=== PATIENT | male | born 1935 | race Caucasian/White ===

== ENCOUNTER 2019-05-06 03:52 | Emergency (ER) | payer MEDICARE, OTHER, SELFPAY ==
--- NOTE | 2019-05-06 03:58 | ED_ITS ---
Entered by Amaris Yepez, acting as scribe for Mariola Marcos Documented by User: Mariola Marcos 05/06/19 05:17 HPI - Abdominal Pain General: Chief Complaint: Abdominal Pain Stated Complaint: ABD PAIN Time Seen by Provider: 05/06/19 03:53 Source: patient Mode of arrival: ambulatory Limitations: no limitations History of Present Illness: HPI narrative: 83 yo m came to the er pov for abd pain and left flank pain. Onset was last night. Pt states that he is having some pain in the left flank towards the back. Pt said that he has a history of kidney stones and this feels the same. Pt is nauseated a little, does not have a fever or vomited. He denies any blood in his urine or dysuria or urinary frequency/urgency. He is unaware of anything that makes his symptoms better or worse. MD elicited complaint: abdominal pain Pertinent past history: kidney stones Onset (ago): day(s) (a few days ago) Pain Consistency: intermittent Location: L flank Severity: mild Quality: sharp Migration to: L flank Exacerbating factors: nothing Relieving factors: nothing Associated Symptoms: Reports nausea; Denies chills, dysuria and fever(s) Related Data: Patient : No Review of Systems General: Reports: other (negative unless marked) Const: Denies: fever or chills Eyes: Denies: change in vision ENMT: Denies: throat pain Card: Denies: chest pain or palpitations Resp: Denies: shortness of breath GI: Reports: abdominal pain and nausea : Denies: flank pain or painful urination Musc: Denies: neck pain, back pain or extremity pain Skin/Breast: Denies: rash, skin tenderness or yellow skin Neuro: Denies: headache or numbness in extremities Endo: Denies: excessive thirst Sunday/Lymph: Denies: easy bruising PFSH ED PFSH: Medical History Coronary artery disease Hypertension Kidney stones Social History Smoking and tobacco status: never smoked Physical Exam Const: COMMON NORMALS: no apparent distress, oriented x3, no limitations, healthy appearing and well nourished EXAM LIMITATIONS: no altered mental status GENERAL APPEARANCE: cooperative, well kempt and well developed ORIENTATION/CONSCIOUSNESS: Yes awake HENMT: COMMON NORMALS: normocephalic, head/scalp atraumatic, hearing grossly normal bilaterally, external ears normal, EAC's normal, external nose normal and moist oral mucous membranes HEAD & SCALP: normal to inspection, normocephalic and atraumatic FACE & SINUS: normal facial exam and face symmetric NOSE: external nose normal and nares normal EXTERNAL EAR: Yes external ears normal EXTERNAL AUDITORY CANAL: EAC's normal MOUTH: oral and palatal mucosa normal and tongue normal Eye: COMMON NORMALS: PERRL, EOMs intact bilaterally, conjunctivae normal and no scleral icterus GENERAL EYE: normal appearance of both eyes and normal light reflex CONJUNCTIVA: Yes conjunctivae normal SCLERA: sclerae normal CORNEA: Yes corneas normal PUPIL: Yes PERRL DIRECT OPHTHALMOSCOPY: Yes normal light reflex Neck/C-Spine: COMMON NORMALS: full ROM, no lymphadenopathy, supple, no meningeal signs and no JVD GENERAL: Yes normal visual inspection and Yes trachea midline CERVICAL SPINE: Yes cervical ROM normal Chest: COMMONS NORMALS: inspection of chest normal and palpation of chest normal Resp: COMMON NORMALS: normal respiratory effort, no retractions, no use of accessory muscles and clear to auscultation bilaterally EFFORT & INSPECTION: Yes able to speak in complete sentences AUSCULTATION: clear to auscultation bilaterally Cardio: COMMON NORMALS: no JVD, regular rate, regular rhythm, S1 normal heart sound, S2 normal heart sound, no gallops, no clicks, no murmurs and no rub JUGULAR VENOUS DISTENTION: no JVD RATE: regular rate RHYTHM: regular rhythm HEART SOUNDS: S1 normal and S2 normal GI: COMMON NORMALS: soft to palpation, non-tender, no hepatosplenomegaly and no masses INSPECTION: Yes normal to inspection PALPATION: Yes soft and Yes no hepatosplenomegaly : COMMON NORMALS: Yes no CVA tenderness BLADDER/KIDNEY EXAM: Yes no CVA tenderness Back/Pelvis: COMMON NORMALS: no CVA tenderness, thoracic and lumbar spine normal to inspection, no thoracic nor lumbar tenderness and thoraco-lumbar ROM normal Extremity: COMMON NORMALS: normal to inspection, full ROM, normal capillary refill, no joint enlargement, no clubbing, cyanosis or edema and no calf tenderness Neuro: COMMON NORMALS: oriented x3, CN's II-XII intact bilaterally, moves all extremities, no focal motor deficits and no sensory deficits noted MENINGEAL SIGNS: Yes no meningeal signs Psych: COMMON NORMALS: mental status grossly normal, thought process normal, cooperative, affect normal, speech normal and activity/motor behavior normal APPEARANCE: Yes well kempt SPEECH: Yes normal speech THOUGHT PROCESS: normal thought process Skin: COMMON NORMALS: no rashes or lesions noted, skin turgor normal, no jaundice, no petechiae and no mottling GENERAL SKIN EXAM: no rashes or lesions noted and turgor normal Course Vital Signs: Vital signs: Vital Signs Temperature 97.7 F 05/06/19 04:00 Pulse Rate 78 05/06/19 04:00 Respiratory Rate 18 05/06/19 04:00 Blood Pressure 149/71 05/06/19 04:00 Pulse Oximetry 97 05/06/19 04:00 MDM - Abdominal Pain Lab Data: Labs: Lab Results 05/06/19 05/06/19 05/06/19 Range/Units 04:50 05:00 05:23 WBC 12.7 H (4.0-10.0) 10^3/ uL RBC 4.21 (4.1-5.3) 10^6/u L Hgb 13.5 (11.7-16.6) g/dL Hct 40.5 L (42.0-52.0) % MCV 96.2 H (80-94) fL MCH 32.1 (28.0-34.0) pg MCHC 33.3 (30.0-36.0) g/dL RDW 13.3 (12.1-15.1) % Plt Count 180 (130-400) 10^3/c mm MPV 10.1 (7.4-10.4) fL Neut % (Auto) 67.4 % Lymph % (Auto) 23.0 % Bertie % (Auto) 8.0 % Eos % (Auto) 0.8 % Baso % (Auto) 0.4 % Neut # (Auto) 8.5 H (1.8-7.7) 10^3/u L Lymph # (Auto) 2.9 (0.8-4.8) 10^3/u L Bertie # (Auto) 1.0 H (0.2-0.9) 10^3/u L Eos # (Auto) 0.1 (0.0-0.8) 10^3/u L Baso # (Auto) 0.1 (0.0-0.1) 10^3/u L Nucleated RBC % (a uto) 0 % Nucleated RBCs # 0.0 /100WBC Sodium 140 (136-145) mmol/L Potassium 4.5 (3.5-5.1) mmol/L Chloride 103 (98-107) mmol/L Carbon Dioxide 23 (22-29) mmol/L Anion Gap 18.5 (5-19) BUN 24 H (8-23) mg/dL Creatinine 0.9 (0.7-1.2) mg/dL Glucose 135 H (65-115) mg/dL Calculated Osmolal ity 289 (285-295) mOsm/k g Calcium 9.2 (8.5-10.5) mg/dL Total Bilirubin 0.4 (0.15-1.2) mg/dL AST 20 (0-40) U/L ALT 14 (0-41) U/L Alkaline Phosphata se 77 (40-130) IU/L Total Protein 6.6 (6.6-8.7) g/dL Albumin 4.2 (3.5-5.2) g/dL Globulin 2.4 (1.3-4.6) g/dL Lipase 23 (13-60) U/L Urine Color Yellow (Yellow) Urine Appearance Clear (CLEAR) Urine pH 5.0 (5-7) Ur Specific Gravit y 1.020 (1.005-1.030) Urine Protein Neg (Negative) Urine Glucose (UA) Norm (Normal) Urine Ketones Negative (Negative) Urine Blood 2+ H (Negative) Urine Nitrate Negative (Negative) Urine Bilirubin Neg (NEGATIVE) Urine Urobilinogen Norm (Negative) mg/dL Ur Leukocyte Kristie ase Negative (Negative) Urine RBC 0-4 H (0-2) /hpf Urine WBC Rare (0-5) /hpf Ur Squamous Epith Cells Rare (0-5) Urine Bacteria Trace (NONE) Discharge Plan Discharge Patient Disposition: Home, Self-Care Clinical Impression: Kidney stones, Hypertension, Coronary artery disease Condition: Stable Prescriptions: New hydrocodone-acetaminophen 5-325 mg tablet 1 tab PO Q6H PRN (Reason: pain) Qty: 30 RF: 0 Zofran 4 mg tablet 4 mg PO Q6H PRN (Reason: nausea and vomiting) Qty: 15 RF: 0 tamsulosin 0.4 mg capsule 0.4 mg PO DAILY Qty: 20 RF: 0 Discharge Orders: Discharge Order (Routine); Ordered 05/06/19 Ordered By: Tobin Pringle Referrals: Benitez Sharif MD [Physician] - (Partially obstructing 7.4 x 8.7 mm calculus at the level of the left ureteropelvic junction.) Discharge Diet: Usual diet Discharge Activity: Resume usual activity Patient Instructions: Kidney Stones (ED), Renal Colic (ED), How to Strain Your Urine (ED) Activity Restrictions/Additional Instructions: Case management will call with an appointment for urology early next week. Strain urine. Sign Out Sign Out Data: Patient Sign Out occurred on 05/06/19 at 06:19. Patient's care was discussed, and care was transferred from Mariola Marcos to Tobin Pringle DO. Sign Out Comment: Case turned over to Dr. Correia at change of shift. Last updated by Mariola Marcos at 05/06/19 05:49 Coding Level of Care Code ED Cyber Defense Analyst for Chg Fwd Exam Comprehensive Documented by User: Tobin Pringle DO 05/06/19 06:56 HPI - Abdominal Pain General: Chief Complaint: Abdominal Pain Stated Complaint: ABD PAIN Time Seen by Provider: 05/06/19 03:53 History of Present Illness: HPI narrative: Patient handed over at change of sh ift from Dr. Bowen. His notes reviewed the patient examined CT reviewed discussed with patient [facility] ED PFSH: Medical History Coronary artery disease Hypertension Kidney stones Social History Smoking and tobacco status: never smoked Physical Exam Const: COMMON NORMALS: no apparent distress GENERAL APPEARANCE: cooperative and comfortable ORIENTATION/CONSCIOUSNESS: Yes awake, Yes oriented to person, Yes oriented to place and Yes oriented to time Neck/C-Spine: COMMON NORMALS: no JVD Resp: COMMON NORMALS: normal respiratory effort, no retractions, no use of accessory muscles and clear to auscultation bilaterally AUSCULTATION: clear to auscultation bilaterally Cardio: COMMON NORMALS: no JVD, regular rate, regular rhythm and no murmurs RATE: regular rate RHYTHM: regular rhythm GI: COMMON NORMALS: soft to palpation and no hepatosplenomegaly AUSCULTATION: Yes normoactive bowel sounds PALPATION: Yes soft, No tender, No guarding and Yes no hepatosplenomegaly Extremity: COMMON NORMALS: normal to inspection, normal capillary refill, no clubbing, cyanosis or edema, no calf tenderness and no pedal edema Neuro: SENSORIUM/ORIENTATION: Yes oriented to person, Yes oriented to place and Yes oriented to time Skin: COMMON NORMALS: no rashes or lesions noted GENERAL SKIN EXAM: no rashes or lesions noted Course ED course: Partially obstructing stone on the left consistent with patient's pain. Stone is quite large 7.4 x 8.7. We will go ahead and discharge him home with tamsulosin hydrocodone and Zofran. Get him set up to see Dr. Sharif early next week. If his pain persists or worsens and is not controlled by oral medications he should return immediately. Creatinine at this time is stable and he shows no sign of infection on his UA. Vital Signs: Vital signs: Vital Signs Temperature 97.7 F 05/06/19 04:00 Pulse Rate 78 05/06/19 04:00 Respiratory Rate 18 05/06/19 04:00 Blood Pressure 149/71 05/06/19 04:00 Pulse Oximetry 97 05/06/19 04:00 MDM - Abdominal Pain Lab Data: Attestation: I reviewed the patient's lab results. Labs: Lab Results 05/06/19 05/06/19 05/06/19 Range/Units 04:50 05:00 05:23 WBC 12.7 H (4.0-10.0) 10^3/ uL RBC 4.21 (4.1-5.3) 10^6/u L Hgb 13.5 (11.7-16.6) g/dL Hct 40.5 L (42.0-52.0) % MCV 96.2 H (80-94) fL MCH 32.1 (28.0-34.0) pg MCHC 33.3 (30.0-36.0) g/dL RDW 13.3 (12.1-15.1) % Plt Count 180 (130-400) 10^3/c mm MPV 10.1 (7.4-10.4) fL Neut % (Auto) 67.4 % Lymph % (Auto) 23.0 % Bertie % (Auto) 8.0 % Eos % (Auto) 0.8 % Baso % (Auto) 0.4 % Neut # (Auto) 8.5 H (1.8-7.7) 10^3/u L Lymph # (Auto) 2.9 (0.8-4.8) 10^3/u L Bertie # (Auto) 1.0 H (0.2-0.9) 10^3/u L Eos # (Auto) 0.1 (0.0-0.8) 10^3/u L Baso # (Auto) 0.1 (0.0-0.1) 10^3/u L Nucleated RBC % (a uto) 0 % Nucleated RBCs # 0.0 /100WBC Sodium 140 (136-145) mmol/L Potassium 4.5 (3.5-5.1) mmol/L Chloride 103 (98-107) mmol/L Carbon Dioxide 23 (22-29) mmol/L Anion Gap 18.5 (5-19) BUN 24 H (8-23) mg/dL Creatinine 0.9 (0.7-1.2) mg/dL Glucose 135 H (65-115) mg/dL Calculated Osmolal ity 289 (285-295) mOsm/k g Calcium 9.2 (8.5-10.5) mg/dL Total Bilirubin 0.4 (0.15-1.2) mg/dL AST 20 (0-40) U/L ALT 14 (0-41) U/L Alkaline Phosphata se 77 (40-130) IU/L Total Protein 6.6 (6.6-8.7) g/dL Albumin 4.2 (3.5-5.2) g/dL Globulin 2.4 (1.3-4.6) g/dL Lipase 23 (13-60) U/L Urine Color Yellow (Yellow) Urine Appearance Clear (CLEAR) Urine pH 5.0 (5-7) Ur Specific Gravit y 1.020 (1.005-1.030) Urine Protein Neg (Negative) Urine Glucose (UA) Norm (Normal) Urine Ketones Negative (Negative) Urine Blood 2+ H (Negative) Urine Nitrate Negative (Negative) Urine Bilirubin Neg (NEGATIVE) Urine Urobilinogen Norm (Negative) mg/dL Ur Leukocyte Kristie ase Negative (Negative) Urine RBC 0-4 H (0-2) /hpf Urine WBC Rare (0-5) /hpf Ur Squamous Epith Cells Rare (0-5) Urine Bacteria Trace (NONE) Imaging Data ^: CT Abd/Pel: Radiologist's impression: PROCEDURE INFORMATION: Exam: CT Abdomen And Pelvis Without And With Contrast Exam date and time: 05/06/2019 5:31 AM Age: 83 years old Clinical indication: Abdominal pain; Flank; Left; Additional info: Lt. Flank pain, lower abd pain TECHNIQUE: Imaging protocol: Computed tomography of the abdomen and pelvis without and with intravenous contrast. Total DLP: 3006.94 mGy-cm Radiation optimization: All CT scans at this facility use at least one of these dose optimization techniques: automated exposure control; mA and/or kV adjustment per patient size (includes targeted exams where dose is matched to clinical indication); or iterative reconstruction. Contrast material: OMNI 300; Contrast volume: 95 ml; Contrast route: 20G; COMPARISON: No relevant prior studies available. FINDINGS: Lungs: There are 3 calcified granulomas seen within the right lower hemithorax. A soft tissue attenuation 8 x 11 mm pulmonary nodularity is seen in the right lung base posteriorly likely representing a noncalcified granuloma. A 2nd 6 mm nodularity is seen within the right middle lobe anteriorly likely representing a noncalcified granuloma as well. Pleural space: There are strandy opacities present in the lower hemithoraces bilaterally that likely represents atelectasis versus pleural or parenchymal scarring. Liver: Normal. No mass. Gallbladder and bile ducts: Normal. No calcified stones. No ductal dilation. Pancreas: Normal. No ductal dilation. Spleen: Normal. No splenomegaly. Adrenals: Normal. No mass. Kidneys and ureters: There are multiple bilateral hypoattenuation simple appearing cystic masses present within the kidneys, the largest is seen on the left measuring 3.3 cm. These likely represent simple cysts. There is mild hydronephrosis seen within the left kidney. There is a mildly delay nephrogram seen on the left. Some strandy opacities are seen in the left perinephric fascia possibly representing mild inflammatory changes. There is a partially obstructing 7.4 x 8.7 mm calculus seen at the left ureteropelvic junction. Stomach and bowel: Diverticula are present on the descending and sigmoid colon. There are no inflammatory changes present to suggest diverticulitis. Appendix: The appendix is visualized and is normal in configuration. Intraperitoneal space: Unremarkable. No free air. No significant fluid collection. Vasculature: Calcifications are seen within the coronary arteries. Calcifications are present within the thoracic and abdominal aorta, iliac arteries and femoral arteries bilaterally, the celiac and superior mesenteric arteries and branches in the origin of the renal arteries bilaterally. Lymph nodes: Unremarkable. No enlarged lymph nodes. Bladder: Unremarkable as visualized. Reproductive: Unremarkable as visualized. Bones/joints: Unremarkable. No acute fracture. Soft tissues: There is a moderate left inguinal hernia containing fat. Other findings: Calcifications are present within the aortic valve. CT/CT abdomen pelvis wo/w [id number] IMPRESSION: 1. Partially obstructing 7.4 x 8.7 mm calculus at the level of the left ureteropelvic junction. 2. Multiple bilateral simple appearing renal cysts, the largest is seen on the left measuring 3.3 cm. No further workup needed. 3. Diverticulosis of the descending and sigmoid colon without evidence of diverticulitis 4. Moderate left inguinal hernia containing fat 5. Calcified granulomas seen in the right lower hemithorax. There are 2 soft tissue attenuation pulmonary nodularity is seen within the right lung base, the largest is seen posteriorly measuring 8 x 11 mm. These likely represent noncalcified granulomas. For patients at low risk (minimal or absent history of smoking and of other known risk factors), recommend CT at 3-6 months, then consider CT at 18-24 months. For patients at high risk (history of smoking or of other known risk factors), recommend CT at 3-6 months, then CT at 18-24 months. (Janeth et al., Fleischner Society, 2017) COMMENTS: Consistent with the [employer]'s Incidental Findings Committee white paper (J Am Julio César Radiol 2018): Any incidental cystic renal lesion classified in this report as too small to characterize or simple appearing is likely a benign cyst. No follow-up imaging is recommended for these lesions per consensus recommendations based on imaging criteria. Radiation Dose CTDIVOL = (mGy): DLP = 3006.94 (mGy-cm) Dictated By:Moisés Choi MD Discharge Plan Discharge Patient Disposition: Home, Self-Care Clinical Impression: Kidney stones, Hypertension, Coronary artery disease Condition: Stable Prescriptions: New hydrocodone-acetaminophen 5-325 mg tablet 1 tab PO Q6H PRN (Reason: pain) Qty: 30 RF: 0 Zofran 4 mg tablet 4 mg PO Q6H PRN (Reason: nausea and vomiting) Qty: 15 RF: 0 tamsulosin 0.4 mg capsule 0.4 mg PO DAILY Qty: 20 RF: 0 Discharge Orders: Discharge Order (Routine); Ordered 05/06/19 Ordered By: Tobin Pringle Referrals: Benitez Sharif MD [Physician] - (Partially obstructing 7.4 x 8.7 mm calculus at the level of the left ureteropelvic junction.) Discharge Diet: Usual diet Discharge Activity: Resume usual activity Patient Instructions: Kidney Stones (ED), Renal Colic (ED), How to Strain Your Urine (ED) Activity Restrictions/Additional Instructions: Case management will call with an appointment for urology early next week. Strain urine. Sign Out Sign Out Data: Patient Sign Out occurred on 05/06/19 at 06:19. Patient's care was discussed, and care was transferred from Mariola Marcos to Tobin Pringle DO. Sign Out Comment: Case turned over to Dr. Correia at change of shift. Last updated by Mariola Marcos at 05/06/19 05:49 Coding Level of Care Code ED Cyber Defense Analyst for Chg Fwd Exam Comprehensive The documentation recorded by the Lucho gifford Stephanie Lyn, accurately reflects the service I personally performed and the decisions made by Priti dotson Eli N May 06, 2019 03:52
[2019-05-06 04:00] VITALS: BP 149/71; PULSE 78; RESP 18; TEMP 36.5; O2SAT 97; BMI 31.9
--- NOTE | 2019-05-06 04:02 | CTR_ITS ---
PROCEDURE INFORMATION: Exam: CT Abdomen And Pelvis Without And With Contrast Exam date and time: 05/06/2019 5:31 AM Age: 83 years old Clinical indication: Abdominal pain; Flank; Left; Additional info: Lt. Flank pain, lower abd pain TECHNIQUE: Imaging protocol: Computed tomography of the abdomen and pelvis without and with intravenous contrast. Total DLP: 3006.94 mGy-cm Radiation optimization: All CT scans at this facility use at least one of these dose optimization techniques: automated exposure control; mA and/or kV adjustment per patient size (includes targeted exams where dose is matched to clinical indication); or iterative reconstruction. Contrast material: OMNI 300; Contrast volume: 95 ml; Contrast route: 20G; COMPARISON: No relevant prior studies available. FINDINGS: Lungs: There are 3 calcified granulomas seen within the right lower hemithorax. A soft tissue attenuation 8 x 11 mm pulmonary nodularity is seen in the right lung base posteriorly likely representing a noncalcified granuloma. A 2nd 6 mm nodularity is seen within the right middle lobe anteriorly likely representing a noncalcified granuloma as well. Pleural space: There are strandy opacities present in the lower hemithoraces bilaterally that likely represents atelectasis versus pleural or parenchymal scarring. Liver: Normal. No mass. Gallbladder and bile ducts: Normal. No calcified stones. No ductal dilation. Pancreas: Normal. No ductal dilation. Spleen: Normal. No splenomegaly. Adrenals: Normal. No mass. Kidneys and ureters: There are multiple bilateral hypoattenuation simple appearing cystic masses present within the kidneys, the largest is seen on the left measuring 3.3 cm. These likely represent simple cysts. There is mild hydronephrosis seen within the left kidney. There is a mildly delay nephrogram seen on the left. Some strandy opacities are seen in the left perinephric fascia possibly representing mild inflammatory changes. There is a partially obstructing 7.4 x 8.7 mm calculus seen at the left ureteropelvic junction. Stomach and bowel: Diverticula are present on the descending and sigmoid colon. There are no inflammatory changes present to suggest diverticulitis. Appendix: The appendix is visualized and is normal in configuration. Intraperitoneal space: Unremarkable. No free air. No significant fluid collection. Vasculature: Calcifications are seen within the coronary arteries. Calcifications are present within the thoracic and abdominal aorta, iliac arteries and femoral arteries bilaterally, the celiac and superior mesenteric arteries and branches in the origin of the renal arteries bilaterally. Lymph nodes: Unremarkable. No enlarged lymph nodes. Bladder: Unremarkable as visualized. Reproductive: Unremarkable as visualized. Bones/joints: Unremarkable. No acute fracture. Soft tissues: There is a moderate left inguinal hernia containing fat. Other findings: Calcifications are present within the aortic valve. CT/CT abdomen pelvis wo/w [id number] IMPRESSION: 1. Partially obstructing 7.4 x 8.7 mm calculus at the level of the left ureteropelvic junction. 2. Multiple bilateral simple appearing renal cysts, the largest is seen on the left measuring 3.3 cm. No further workup needed. 3. Diverticulosis of the descending and sigmoid colon without evidence of diverticulitis 4. Moderate left inguinal hernia containing fat 5. Calcified granulomas seen in the right lower hemithorax. There are 2 soft tissue attenuation pulmonary nodularity is seen within the right lung base, the largest is seen posteriorly measuring 8 x 11 mm. These likely represent noncalcified granulomas. For patients at low risk (minimal or absent history of smoking and of other known risk factors), recommend CT at 3-6 months, then consider CT at 18-24 months. For patients at high risk (history of smoking or of other known risk factors), recommend CT at 3-6 months, then CT at 18-24 months. (Janeth et al., Fleischner Society, 2017) COMMENTS: Consistent with the [employer]'s Incidental Findings Committee white paper (J Am Julio César Radiol 2018): Any incidental cystic renal lesion classified in this report as too small to characterize or simple appearing is likely a benign cyst. No follow-up imaging is recommended for these lesions per consensus recommendations based on imaging criteria. Radiation Dose CTDIVOL = (mGy): DLP = 3006.94 (mGy-cm)
[2019-05-06 05:23] LABS: Alanine Aminotransferase 14 U/L (0-41); Albumin Level 4.2 g/dL (3.5-5.2); Alkaline Phosphatase 77 IU/L (40-130); Anion Gap 18.5 (5-19); Blood Urea Nitrogen 24 mg/dL (8-23); Calcium 9.2 mg/dL (8.5-10.5); Carbon Dioxide 23 mmol/L (22-29); Chloride 103 mmol/L (98-107); Globulin 2.4 g/dL (1.3-4.6); Glucose 135 mg/dL (65-115); Lipase 23 U/L (13-60); Osmolality Calculated 289 mOsm/kg (285-295); Potassium 4.5 mmol/L (3.5-5.1); Sodium 140 mmol/L (136-145); Total Bilirubin 0.4 mg/dL (0.15-1.2); Total Protein 6.6 g/dL (6.6-8.7)
[2019-05-06 05:24] LABS: Aspartate Amino Transferase 20 U/L (0-40)
[2019-05-06 05:27] LABS: Basophils # 0.1 10^3/uL (0.0-0.1); Basophils % 0.4 %; Eosinophils # 0.1 10^3/uL (0.0-0.8); Eosinophils % 0.8 %; Hematocrit 40.5 % (42.0-52.0); Hemoglobin 13.5 g/dL (11.7-16.6); Lymphocytes # 2.9 10^3/uL (0.8-4.8); Mean Corpuscular HGB Conc 33.3 g/dL (30.0-36.0); Mean Corpuscular Hemoglobin 32.1 pg (28.0-34.0); Mean Corpuscular Volume 96.2 fL (80-94); Mean Platelet Volume 10.1 fL (7.4-10.4); Neutrophils # 8.5 10^3/uL (1.8-7.7); Neutrophils % 67.4 %; Nucleated Red Blood Cells % 0 %; Platelet Count 180 10^3/cmm (130-400); Red Blood Count 4.21 10^6/uL (4.1-5.3); Red Cell Distribution Width 13.3 % (12.1-15.1); White Blood Count 12.7 10^3/uL (4.0-10.0)
[2019-05-06] MEDS: ondansetron 2 mg/ML SDV 2 mL 4 MG IVP (05:51)
[2019-05-06] MEDS: sodium chloride 0.9% 1,000 ML 100 ML IV (05:51)
[2019-05-06] MEDS: morphine 4 mg/mL SDV 1 mL IVP (05:51)
[2019-05-06] MEDS: iohexol 300 mg/mL 100 mL Btl IV (06:11)
[2019-05-06 06:15] LABS: Urine Appearance Clear (CLEAR); Urine Color Yellow (Yellow)
[2019-05-06 06:16] LABS: Add Urine Culture? No; Bacteria Urine TRACE; Bilirubin Urine Neg (NEGATIVE); Blood Urine 2+ (Negative); Glucose Urine UA Norm (Normal); Ketones Urine Negative (Negative); Leukocyte Esterase Urine Negative (Negative); Nitrate Urine Negative (Negative); Protein Urine Neg (Negative); RBC Urine 0-4 /hpf (0-2); Squamous Epithelial Cell Urine RARE (0-5); Urobilinogen Urine Norm (Negative); WBC Urine RARE /hpf (0-5)
[2019-05-06 07:06] VITALS: BP 128/56; PULSE 68; RESP 16; O2SAT 97
--- NOTE | 2019-05-08 12:31 | DCPLANNER ---
manager research and development had message to schedule a follow up appointment for patient with Dr. Sharif. manager research and development called the office of Dr. Sharif, spoke with Jessica, gave clinic patients information. manager research and development was told that patients information would be printed and given to Rut for review. Clinic will call patient with appointment information. manager research and development will call for appointment information.
--- NOTE | 2019-05-12 08:50 | DCPLANNER ---
Patient had a follow up appointment scheduled for 05.09.[address] Sharif, patient did attend the appointment.
== END 2019-05-06 07:08 | disposition home or self-care (01) ==
PROVIDERS: Emergency Medicine; Emergency Provider Family Medicine; Family Provider Physician Assistant Medical; PCP Physician Assistant Medical
DX: N20.1 Calculus of ureter (principal); I25.10 Atherosclerotic heart disease of native coronary artery without angina pectoris; I10 Essential (primary) hypertension
CPT/HCPCS: 12345; 36415; 74178; 80053; 81001; 83690; 85025; 96361; 96374; 96375; 99283; J2270; J2405; J7030; Q9967

== ENCOUNTER 2019-05-09 08:57 | Outpatient (CLI) | payer MEDICARE, OTHER, SELFPAY ==
--- NOTE | 2019-05-09 09:00 | XR_ITS ---
WS: [id number] KUB, 05/09/2019 Clinical Data: KIDNEY STONES Comparison: CT abdomen and pelvis, 05/06/2019 Findings: There is a 1.24 cm calcification to the left of the L3 vertebral body which probably represents the l eft ureteral pelvic junction calculus. In the left upper quadrant there are calcifications which are probably in the wall of the splenic artery. 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 There is fecal material throughout the transverse colon. The true pelvis shows no ureteral calcifications. The bladder is partly full. No bowel dilatation or evidence of obstruction is seen. XR/XR KUB [id number] Impression: 1. 1.24 cm calcification probably representing left ureteral pelvic junction ca lculus. 2. 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
== END 2019-05-09 08:58 | disposition home or self-care (01) ==
PROVIDERS: Family Provider Physician Assistant Medical; PCP Physician Assistant Medical; Visit Provider Urology
DX: N20.0 Calculus of kidney (principal); M47.894 Other spondylosis, thoracic region; M47.896 Other spondylosis, lumbar region
CPT/HCPCS: 74018; 81001

== ENCOUNTER 2019-05-12 06:26 | Day surgery (SDC) | payer MEDICARE, SELFPAY ==
[2019-05-11 08:55] VITALS: BMI 33.7
[2019-05-12] VITALS (8 sets, daily range): BP systolic 115–159; BP diastolic 68–85; PULSE 69–85; RESP 17–20; TEMP 36.1–37; O2SAT 94–100
--- NOTE | 2019-05-12 06:37 | SC_ITS ---
WS: [id number] C-ARM RADIOGRAPHS ABDOMEN; 5 IMAGES HISTORY: Left ureteroscopy COMPARISON: None available. Intraoperative imaging during LEFT ureteroscopy. Contrast fills the ureter with interval placement of a LEFT ureteral stent. Stone is noted in the mid ureter as seen on the prior radiograph of 05/09/2019 . SC/C-arm [facility] for Urology IMPRESSION: Intraoperative imaging during LEFT retrograde and ureteral stent placement.
[2019-05-12] MEDS: sodium chloride 0.9% 1,000 ML 30 ML IV (06:52)
--- NOTE | 2019-05-12 07:02 | ANES.PREANE2 ---
Pre-Anesthetic Assessment Pre-Anesthetic Assessment: Height/Weight: Height 1.64 m Weight 90.718 kg Temp Pulse Resp BP Pulse Ox 97.1 F L 76 18 159/77 96 05/12/19 06:46 05/12/19 06:46 05/12/19 06:46 05/12/19 06:46 05/12/19 06:46 Preop Diagnosis: Large left proximal ureteral obstructing stone Proposed Procedure: Operation Date: 05/12/19 08:00 Proposed Procedures p Cystoscopy 07009 21697-41 N20.1(Left) - Benitez Sharif MD s Retrograde Pyelogram(Left) - Benitez Sharif MD s Flexible Ureteroscopy(Left) - MD jeanie Carbone Laser Lithotripsy(Left) - Benitez Sharif MD s Ureteral Stent Placement(Left) - Benitez Sharif MD Familial anesthetic complications: None Was Beta Renata taken within 24 hours: N/A Last intake: Intake NPO > 8 hrs Last Liquid Date 05/11/19 Last Liquid Time 20:00 Last Solid Date 05/11/19 Last Solid Time 17:00 Social: Social History: No alcohol and No tobacco Exam: Pre-Anes Outpt Exam: alert, oriented x 3, clear to auscultation bilaterally and regular rate & rhythm Airway: Cervical ROM: WNL MP: 3 Additional comments: missing teeth Pulmonary: Pulmonary: None reported CV/HEM: CV/HEM: CAD Comments: 3 cardiac stents on plavix - 7 to 8 years ago : : None reported Hepatic: Hepatic: None reported GI: GI: None reported Metabolic: Metabolic: None reported Musc/skel: Musc/skel: Lower Back Pain Neuropsych: Neuropsych: None reported Anesthetic Plan: ASA status: 2 Anesthesia: General Risk of > 500 ml blood loss (7ml/kg in children): No Meds/Allergies Current Medications: Current Medications Generic Name Dose Route Start Last Admin Trade Name Freq PRN Reason Stop Dose Admin Sodium Chloride 1,000 mls @ 30 ml s/hr 05/12/19 06:45 05/12/19 06:52 Sodium Chloride 0.9% IV 05/13/19 06:44 30 mls/hr .Q24H BARBI Administration PFSH Anesthesia PFSH: Social History Smoking and tobacco status: never smoked Alcohol intake: never Marital status: Current occupational status: retired History of recent travel: No Data Anesthesia Cardiac Studies: No Data to Display
--- NOTE | 2019-05-12 08:22 | W.PM.OPSUD ---
Surgery/Procedure H&P Update DATE OF PROCEDURE: May 12, 2019 DATE H&P PERFORMED: 05/09/19 H&P UPDATE INFORMATION: I have reviewed H&P completed within last 30 days, I have examined patient prior to procedure and No changes to prior documentation PREOP DIAGNOSIS: Large left proximal ureteral obstructing stone PLANNED PROCEDURE: Operation Date: 05/12/19 08:00 Proposed Procedures p Cystoscopy 31795 [id number] N20.1(Left) - Benitez Sharif MD s Retrograde Pyelogram(Left) - Benitez Sharif MD s Flexible Ureteroscopy(Left) - MD jeanie Carbone Laser Lithotripsy(Left) - MD jeanie Carbone Ureteral Stent Placement(Left) - Benitez Sharif MD
[2019-05-12] MEDS: levofloxacin-dextrose 5 % 500 MG/100 ML PREMIX 100 MG IV (08:32)
[2019-05-12] MEDS: iohexol 300 mg/mL 50 mL Btl (OR ONLY) XX (08:55)
--- NOTE | 2019-05-12 09:49 | P.OP_ITS ---
Operative Report Date of procedure: May 12, 2019 Pre-op Diagnosis: Large left proximal ureteral obstructing stone Post-op diagnosis: same Post-op Findings: Stone well fragmented into very small particles. A lot of sand passed into the ureter and into the bladder Procedure Done: Cystoscopy, left retrograde ureteropyelogram Flexible ureterorenoscopy with laser lithotripsy, stent (7 Guatemalan by 26 cm double-pigtail without string Implants: Left ureteral stent Pathology: Some sand from the fragmentation process Surgeon: Kole Anesthesia: General (Helena BOSWELL) Estimated blood loss: Minimal Urine output: Not measured Complications: None Findings: 1. With the passage of the guidewire the stone migrated into left midpole calyx. 2. 273 ?m homing laser fiber utilized to fragment the stone into mostly sand and very small particles. 3. Ureteral stent left indwelling Condition: stable Disposition: PACU Brief History: Mr. robrets is a delightful 83-year-old white male who presented with recent renal colicky symptoms on the left and diagnosis of a large left proximal ureteral stone with obstructive changes. No evidence of infection. The stone measured 1.4 cm in size and was felt to be too large to spontaneously pass. The concern surrounding the stone was the potential for longstanding renal damage and for that reason it was decided to treat the stone. He was on Plavix and for that reason endoscopy was chosen with laser lithotripsy. The Plavix had been stopped for 2 days prior to the procedure. Procedure: After routine preoperative evaluation examination and obtaining of informed consent he was taken to the operating suite on 05/12/2019 where general anesthesia was administered without difficulty after appropriate timeout was performed, SCDs confirmed to be functioning, preoperative antibiotics administered, and beta-bhupendra protocol confirmed. Prepped and draped in the usual sterile fashion in dorsolithotomy position pain careful attention to avoiding pressure points 21 Guatemalan cystoscope with 30 degree lens was introduced into the urethra meatus and advanced into the bladder under videoscopy. The bladder was systematically examined and found to be within normal limits. There were no stones. An 8 Guatemalan cone-tipped catheter was intubated into the left ureteral orifice for left retrograde ureteropyelogram which demonstrated normal ureter up until the stone was encountered in the left proximal ureter. The stone was easily identified on fluoroscopy. The ureter proximal to the stone was somewhat dilated as was the pyelocalyceal system. A flexible tip guidewire was then advanced without difficulty up the left ureter and a second wire was also passed. The bladder was drained. The safety wire was secured to the drapes. The working wire was utilized to try and pass a ureteral access sheath but it could not easily be passed. The cystoscope was then backloaded over the guidewire and the distal ureter was dilated with a 15 Guatemalan 4 cm balloon with no waist at 4 alba of pressure The ureteral access sheath was again attempted to be passed but could not be easily. It was left in the DIP very distal ureter and then the flexible ureteroscope was advanced over the working guidewire through the sheath up the left ureter easily into the renal pelvis. The stone had been seen to migrate into the upper pole/mid pole calyx with the passage of wire and it was easily identified. No other stones were seen after careful inspection of all the calyces. The stone had a dark hard calcium oxalate monohydrate type appearance with a smooth surface. A 273 ?m holmium laser fiber was then utilized to fragment the stone into mostly sand but with many small small particles. On final inspection no fragments that were large were identified with either fluoroscopy or endoscopy. The ureter was inspected as the scope was withdrawn and there was a lot of sand in the ureter all the way down to the distal aspect. Some was flushed out of the bladder as well. The cystoscope was then backloaded over the safety wire and a 7 Guatemalan by 26 cm double-pigtail stent without string was then passed easily through the cystoscope over the guidewire into appropriate position as confirmed via fluoroscopy and cystoscopy. Bladder was drained. Procedure completed. Tolerated the procedure well without complications and was awakened in the operating room and returned to the recovery in stable condition. PLANS: 1. Follow-up next week with a KUB and likely remove the stent in my office via flexible cystoscopy 2. Discharge from outpatient surgery today.
--- NOTE | 2019-05-12 09:55 | SUR.PHASEI ---
0975 PATIENT TO PACU AT THIS TIME. RR EVEN AND UNLABORED. PLACED ON SIMPLE MASK AT 8L, SPO2 95%. PATIENT UNRESPONSIVE TO VERBAL STIMULI, PROTECTING AIRWAY.
--- NOTE | 2019-05-12 10:24 | SUR.PHASEI ---
1021 PATIENT TO OPS AT THIS TIME. DENIES PAIN. RR EVEN AND UNLABORED. NO DISTRESS.
[2019-05-15 14:21] LABS: Stone Source LEFT URETERAL STONE
== END 2019-05-12 11:42 | disposition home or self-care (01) ==
PROVIDERS: Family Provider Physician Assistant Medical; PCP Physician Assistant Medical; Visit Provider Urology
PROC: 0TJB8ZZ Inspection of Bladder, Via Natural or Artificial Opening Endoscopic (ICD-10-PCS; CPT 52000; principal; 2019-05-12 08:00)
PROC: (CPT 74420; 2019-05-12 08:00)
PROC: 0TJ98ZZ Inspection of Ureter, Via Natural or Artificial Opening Endoscopic (ICD-10-PCS; CPT 52351; 2019-05-12 08:00)
PROC: (CPT 52356; 2019-05-12 08:00)
PROC: (CPT 50605; 2019-05-12 08:00)
DX: N20.1 Calculus of ureter (principal); I25.10 Atherosclerotic heart disease of native coronary artery without angina pectoris; Z95.5 Presence of coronary angioplasty implant and graft; Z82.49 Family history of ischemic heart disease and other diseases of the circulatory system
CPT/HCPCS: 52356; 12345; 76000; 82365; 88300; C1725; C2625; J1100; J1956; J2001; J2405; J2704; J2710; J3010; J3490; J7030

== ENCOUNTER 2019-05-19 08:28 | Outpatient (CLI) | payer MEDICARE, OTHER, SELFPAY ==
--- NOTE | 2019-05-19 | XR_ITS ---
WS: [id number] ABDOMEN KUB CLINICAL INFORMATION: Renal/ureteral calculi. COMPARISON: CT May 06, 2019, KUB May 09, 2019 FINDINGS: Left double-J ureteral stent in place. Previously described 12 mm left ureteral calculus no longer vi sualized. Tiny subcentimeter renal parenchymal calculi the largest measuring 4 mm. No visualized uret eral calculi. No visualized right renal parenchymal or ureteral calculi. Advanced spondylitic changes lumbar spine. Osteopenia. Mild lumbar curve. XR/XR KUB [id number] Impression: 1. Left double-J ureteral stent in place. No visualized ureteral calculi. 2. Numerous subcentimeter left renal parenchymal calculi the largest measuring 4 mm
== END 2019-05-19 08:29 | disposition home or self-care (01) ==
LOC: RAD 08:32 → RADWPI 08:32
PROVIDERS: Family Provider Physician Assistant Medical; PCP Physician Assistant Medical; Visit Provider Urology
DX: N20.1 Calculus of ureter (principal); Z96.0 Presence of urogenital implants; Z98.890 Other specified postprocedural states; N23 Unspecified renal colic
CPT/HCPCS: 74018; 81001

== ENCOUNTER 2019-09-21 08:16 | Outpatient (CLI) | payer MEDICARE, SELFPAY ==
--- NOTE | 2019-09-21 08:15 | XRR_ITS ---
PROCEDURE INFORMATION: Exam: XR Abdomen, 1 View Exam date and time: 09/21/2019 8:38 AM Age: 84 years old Clinical indication: Condition or disease; Kidney or ureter condition; Calculus (stone) in ureter; Additional info: Ureteral stone TECHNIQUE: Imaging protocol: XR of the abdomen. Views: Frontal supine view of the abdomen. 1 View. COMPARISON: NM XR KUB [id number] 05/19/2019 8:53 AM FINDINGS: Gastrointestinal tract: The bowel gas pattern is nonspecific. Air filled large bowel including distal rectal gas. 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 XR/XR KUB [id number] IMPRESSION: 1. The bowel gas pattern is nonspecific. Air filled large bowel including distal rectal gas. 2. 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
== END 2019-09-21 08:17 | disposition home or self-care (01) ==
LOC: RAD 08:20
PROVIDERS: PCP Physician Assistant Medical; Visit Provider Urology
DX: N20.1 Calculus of ureter (principal); M51.36 Other intervertebral disc degeneration, lumbar region
CPT/HCPCS: 74018; 81001

== ENCOUNTER 2020-11-20 07:55 | Outpatient (CLI) | payer MEDICARE, SELFPAY ==
--- NOTE | 2020-11-20 08:15 | XR_ITS ---
WS: [id number] XR KUB [id number] REASON FOR EXAM: RENAL STONE FINDINGS: No urinary tract calculi are identified on the current examination. No other significant abdominal or pelvic soft tissue abnormality identified. Incidentally noted are bony changes in the lumbar spine and pelvis compatible with diffuse idiopathic skeletal hyperostosis. XR/XR KUB [id number] IMPRESSION: No urinary tract calculi.
== END 2020-11-20 07:56 | disposition home or self-care (01) ==
LOC: RAD 07:57
PROVIDERS: PCP Physician Assistant Medical; Visit Provider Urology
DX: N20.0 Calculus of kidney (principal)
CPT/HCPCS: 74018; 81003